=== PATIENT | male | born 1940 | race Caucasian/White ===

== ENCOUNTER 2017-07-16 10:55 | Emergency (ER) | payer MEDICARE ==
[~2017-07-16 10:55] MED LIST: Sodium Chloride Irrig Solution 250 ML BOT ONE; Sterile Water Irrigation 250 ML BOT ONE
[2017-07-16] MEDS ORDERED: Cephalexin 250 MG CAP ONE (11:25)
[2017-07-16] MEDS ORDERED: HYDROcodone/Acetaminophen 5/325 mg Tablet ONE (11:25)
[2017-07-16] MEDS ORDERED: Lidocaine 1% 20 ML MDV ONE (11:25)
[2017-07-16] MEDS ORDERED: Adacel (T-DAP) 0.5 ML VIAL ONE (11:25)
--- NOTE | 2017-07-16 11:57 | RAD ---
TWO VIEWS LEFT THUMB: INDICATIONS: Table saw injury. FINDINGS: There is an open comminuted distal tuft fracture of the left thumb. There is prominent soft tissue m aceration of the distal aspect of the thumb. There is some radiopaque debris seen along the amputati on site. IMPRESSION: Distal tuft fracture of the left thumb with prominent soft tissue issue injury and radiopaque foreign body. POS: [facility]
== END 2017-07-16 11:55 | disposition home or self-care (01) ==
LOC: MADERS 10:55
DX: S62.522A Displaced fracture of distal phalanx of left thumb, initial encounter for closed fracture (principal); W27.0XXA Contact with workbench tool, initial encounter; Y92.009 Unspecified place in unspecified non-institutional (private) residence as the place of occurrence of the external cause
CPT/HCPCS: 11010; 90471; 90715; J2001